=== PATIENT | female | born 1990 | race Caucasian/White ===

== ENCOUNTER 2017-09-18 05:26 | Day surgery (SDC) | payer BC ==
[~2017-09-18] VITALS: Ht 160 cm; Wt 81.6 kg
--- NOTE | ~2017-09-18 | OP ---
PATIENT NAME: ARNAV COLE MEDICAL RECORD: [id number] :88 LOCATION:[facility] ADMISSION DATE: SURGEON: ANGEL WILCOX DO DATE OF OPERATION: 09/18/2017 PROCEDURE PERFORMED: Left fifth metatarsal open reduction and internal fixation. PREOPERATIVE DIAGNOSIS: Left fifth metatarsal base nonunion. POSTOPERATIVE DIAGNOSIS: Left fifth metatarsal base nonunion. SURGEON: Angel Wilcox DO INDICATIONS: Ms. Cole is a 26-year-old female who fractured her left fifth metatarsal base pseudo-Martinez fracture approximately a year ago. She has been dealing with this. She has been tried on bone stimulator, nonweightbearing, and all other manner of conservative treatments. She got to the point where she is tired of dealing with the pain and it hurt every time she stepped on it and anytime she was bearing weight. Having exhausted the conservative management, she was informed of the risks and benefits of the procedure including damage to the sural nerve, numbness on the lateral side of the foot infection, bleeding, and the need for further surgery. She was okay with these risks as well as the risk of blood clot being nonweightbearing and being on control and she consented to the procedure. DESCRIPTION OF THE PROCEDURE: She received a block preoperatively by anesthesia. She was then taken to the operative suite, given 2 grams Ancef preoperatively and laid in the right lateral recumbent position. After this was done, the left lower extremity was prepped and draped in a sterile fashion with a tourniquet above the knee after it was prepped and draped, timeout was performed. Everyone was in agreement with the correct side, site, and patient. After the time-out, the left lower extremity was exsanguinated with an Esmarch and the tourniquet was inflated to 350 mmHg. It was up for 25 minutes during the procedure. An incision to approximately 2 cm proximal to the base of the fifth metatarsal was then marked out and incised with a 15 blade scalpel and blunt dissection was made down with scissors and a freer cleared the path and then a K-wire was used to get the fifth metatarsal base into the canal of the fifth metatarsal. This was confirmed both on the AP and lateral and oblique x-rays. It was indeed in the shaft of the fifth metatarsal. I then overdrilled and with a soft tissue protector in place and the #47 Acutrak screw from [employer], 45 mm in length entered over the K-wire guide pin. This was then hand tightened and there was nice reduction of the fracture site seen on all views, AP, lateral, oblique, and once this was a good reduction and the Acutrak screw was buried below the surface, so as to not bother her with shoe wear, the guide wire was removed and again, x-rays were taken to confirm good placement and good reduction of the fracture site. The tourniquet was then let down at 25 minutes. The site was irrigated with saline and closed using horizontal mattress sutures of 5-0 Monocryl. OPERATIVE REPORT [id number] ARNAV COLE The patient was then awakened and taken to the recovery in stable condition. TRANSINT:[id number] Voice Confirmation ID: [id number] DOCUMENT ID: [id number] ANGEL WILCOX DO at 1119 CC: [id number] DICTATION DATE: 09/18/17 0837 PROPERTY INVESTOR: 09/18/17 0941 [facility] [address] [place] [address]
[~2017-09-18 05:26] MED LIST: CYCLOBENZAPRINE10 MG PO; TENORMIN25 MG
[2017-09-18 05:43] LABS: BASOPHILS 0.3 % (0-2); EOSINOPHILS 1.8 % (0-7); HEMATOCRIT 40.7 % (36.0-48.0); IMMATURE GRANULOCYTES 0.2 % (0-5); LYMPHOCYTES 40.5 % (15-50); MCH 29.6 pg (26.0-34.0); MCHC 34.4 g/dL (31.0-37.0); MONOCYTES 9.5 % (2-11); NEUTROPHILS 47.7 % (40-80); PLATELET COUNT 274 10x3/uL (130-400); RBC 4.73 10x6/uL (4.00-5.40); WBC 6.1 10x3/uL (4.8-10.8)
[2017-09-18 05:55] LABS: CALC OSMOLALITY 278 mosm/kg (275-300); CARBON DIOXIDE 29.4 mmol/L (21.0-32.0); CHLORIDE - SERUM 104 mmol/L (98-107); CREATININE - SERUM 0.7 mg/dL (0.6-1.3); GLUCOSE 114 mg/dL (74-106); POTASSIUM - SERUM 4.4 mmol/L (3.5-5.1); SODIUM 139 mmol/L (136-145); UREA NITROGEN 13 mg/dL (7-18); eGFR NON AFRICAN AMERICAN > 90 mL/min (90-120)
[2017-09-18] MEDS ORDERED: MAGNESIUM OXID250 MG PO (06:41)
[2017-09-18] MEDS ORDERED: VITAMIN D2000 UNIT PO (06:41)
[2017-09-18 06:49] LABS: HCG URINE NEGATIVE (NEGATIVE)
[2017-09-18 06:51] VITALS: BP 105/68; Ht 160 cm; Wt 81.6 kg
[2017-09-18] MEDS ORDERED: PERCOCET 7.5/321 TAB PO (08:26)
[2017-09-18] MEDS ORDERED: ASPIRIN EC325 M1 PO (08:27)
[2017-09-18] MEDS ORDERED: KEFLEX500 MG PO (08:27)
== END 2017-09-18 10:55 | disposition home or self-care (01) ==
LOC: D.OPS 05:26 → D.PAN 07:30 → D.OPS 07:30
PROVIDERS: Anesthesiology; Orthopaedic Surgery
DX: S92.352K Displaced fracture of fifth metatarsal bone, left foot, subsequent encounter for fracture with nonunion (principal); Z01.812 Encounter for preprocedural laboratory examination